=== PATIENT | male | born 1945 | race Caucasian/White ===

== ENCOUNTER 2020-02-03 11:19 | Observation (INO) ==
[2020-02-03 11:44] LABS: Basophils % 0.1 % (0.0-0.8); Hematocrit 41.4 VOL% (42.0-52.0); Hemoglobin 14.1 GM/DL (14.0-18.0); Immature Granulocytes % 0.6 %; Immature Granulocytes Absolute 0.14 #; Lymphocytes # 0.8 10*3/uL (1.4-4.0); Lymphocytes % 3.7 % (21.2-54.2); Mean Corpuscular HGB Conc 34.1 GM/DL (32-36); Mean Corpuscular Volume 83.1 FL (87-102); Mean Platelet Volume 10.7 FL (9.6-12.0); Monocytes % 3.3 % (1.7-12.7); Neutrophils % 92.3 % (38.7-73.9); Platelet Count 200 T/CUMM (130-400); Red Blood Count 4.98 MC/CUMM (3.8-5.5); Red Cell Distribution Width 13.2 % (9.3-17.3); White Blood Count 21.8 T/CUMM (4-12)
[2020-02-03] MEDS ORDERED: ONDANSETRON 4 MG/2 ML VIAL IV STA (11:47)
[2020-02-03] MEDS ORDERED: MORPHINE 4 MG/1 ML VIAL IV STA (11:47)
[2020-02-03] MEDS ORDERED: ENOXAPARIN 120 MG/0.8 ML SYRINGE SUBCUT STA (11:47)
[2020-02-03] MEDS ORDERED: ASPIRIN CHEW 81 MG TABLET PO STA (11:47)
[2020-02-03 12:06] LABS: Band Neutrophils 2 % (0-10); Hypochromasia 1+; Lymphocytes 2 % (20-55); Microcytosis 1+; Ovalocytes Slight; Platelet Estimate Adequate; Segmented Neutrophils 93 % (50-85); Total Cells Counted 100
[2020-02-03 12:11] LABS: Alanine Aminotransferase 24 U/L (16-61); Alkaline Phosphatase 98 U/L (45-117); Aspartate Amino Transferase 14 U/L (0-37); Bilirubin,Total < 0.39 MG/DL (0.2-1.0); Blood Urea Nitrogen 24 MG/DL (7-18); Calcium 9.7 MG/DL (8.5-10.1); Estimated Glom Filtration Rate 47 ML/MIN; Glucose 222 MG/DL (74-106); Total Protein 7.7 G/DL (6.4-8.3)
[2020-02-03] MEDS ORDERED: SODIUM CHLORIDE 0.9% 1,000 ML IV STA (12:25)
[2020-02-03] MEDS ORDERED: ONDANSETRON 4 MG/2 ML VIAL IV PRN (13:59)
[2020-02-03] MEDS ORDERED: ALUMINUM/MAGNES/SIMETH MAX STR 30 ML UDCUP PO PRN (13:59)
[2020-02-03] MEDS ORDERED: MAGNESIUM SULF RIDER 2 GM in PREMIX 1 EACH IV PRN (13:59)
[2020-02-03] MEDS ORDERED: POTASSIUM CHLORIDE 20 MEQ TABLET PO PRN (13:59)
[2020-02-03] MEDS ORDERED: diphenhydrAMINE CAP 25 MG CAPSULE PO PRN (13:59)
[2020-02-03] MEDS ORDERED: MAGNESIUM SULF RIDER 4 GM in PREMIX 1 EACH IV PRN (13:59)
[2020-02-03] MEDS ORDERED: ZALEPLON 5 MG CAPSULE PO PRN (13:59)
[2020-02-03] MEDS ORDERED: NITROGLYCERIN SL 0.4 MG TABLET SL PRN (14:07)
[2020-02-03] MEDS ORDERED: FLUTICASONE 50 MCG NASAL SPRAY 16 GM BOTTLE BOTH NARES PRN (14:07)
[2020-02-03] MEDS ORDERED: NEBIVOLOL 10 MG TABLET PO ONE (14:11)
[2020-02-03] MEDS ORDERED: GLUCAGON 1 MG VIAL IM PRN (14:11)
[2020-02-03] MEDS ORDERED: DEXTROSE 50% 25 GM/50 ML VIAL IV PRN (14:11)
[2020-02-03] MEDS ORDERED: CLOPIDOGREL 75 MG TABLET PO ONE (14:16)
[2020-02-03] MEDS: ISOSORBIDE MONONITRATE 30 MG TABLET PO SCH (15:36)
[2020-02-03 15:52] LABS: Bilirubin,Urine Negative (Negative); Blood, Urine Negative (Negative); Glucose,Urine (UA) 150 mg/dL (Negative); Hyaline Casts,Urine 3 /LPF (0-3); Ketones,Urine Negative (Negative); Mucus,Urine Occasional /LPF (Occasional); Nitrite,Urine Negative (Negative); Protein,Urine Negative; RBC,Urine <1 /HPF (0-4); Urine Appearance CLEAR (Clear); Urine Color Yellow (Yellow); Urine Specific Gravity 1.024 (1.001-1.035); Urine Urobilinogen < 2.0 EU/DL (0.2-1.0); WBC,Urine <1 /HPF (0-6)
[2020-02-03 17:35] LABS: CKMB % 10.1 %
[2020-02-03 17:40] LABS: Troponin I 1.6 NG/ML (0.00-0.045)
[2020-02-03] MEDS: INSULIN REGULAR 100 UNIT/ML SUBCUT SCH ×2 (17:42→21:26)
[2020-02-03] MEDS: SODIUM CHLORIDE 0.45% 1,000 ML IV SCH (17:42)
[2020-02-03] MEDS ORDERED: NEBIVOLOL 10 MG TABLET PO SCH (21:00)
[2020-02-03] MEDS: CYCLOBENZAPRINE 10 MG TABLET PO SCH (21:25)
[2020-02-03] MEDS: DOCUSATE SODIUM 100 MG CAPSULE PO SCH (21:25)
[2020-02-03] MEDS: ROSUVASTATIN 20 MG TABLET PO SCH (21:25)
[2020-02-03] MEDS: TERAZOSIN 1 MG CAPSULE PO SCH (21:26)
[2020-02-03] MEDS: PRAMIPEXOLE 0.25 MG TABLET PO SCH (21:26)
[2020-02-03 21:27] LABS: CKMB % 11.2 %
[2020-02-03 21:35] LABS: Troponin I 2.78 NG/ML (0.00-0.045)
[2020-02-04] MEDS: SODIUM CHLORIDE 0.45% 1,000 ML IV SCH ×2 (02:54→16:32)
[2020-02-04 06:00] LABS: Basophils % 0.2 % (0.0-0.8); Eosinophils % 0.1 % (0.00-10.9); Hemoglobin 13.2 GM/DL (14.0-18.0); Immature Granulocytes % 0.7 %; Immature Granulocytes Absolute 0.13 #; Lymphocytes # 2.2 10*3/uL (1.4-4.0); Lymphocytes % 11.9 % (21.2-54.2); Mean Corpuscular Volume 83.9 FL (87-102); Mean Platelet Volume 11.2 FL (9.6-12.0); Monocytes % 5.5 % (1.7-12.7); Neutrophils % 81.6 % (38.7-73.9); Platelet Count 183 T/CUMM (130-400); Red Blood Count 4.77 MC/CUMM (3.8-5.5); Red Cell Distribution Width 13.4 % (9.3-17.3); White Blood Count 18.3 T/CUMM (4-12)
[2020-02-04 06:45] LABS: Albumin 3.5 G/DL (3.4-5.0); Bilirubin,Total 0.6 MG/DL (0.2-1.0); Osmolality,Calculated 283.5 MOS/KG (273-304); Risk Ratio 2.25; Total Protein 7.1 G/DL (6.4-8.3); VLDL CHOLESTEROL 31.4 MG/DL
[2020-02-04] MEDS: INSULIN REGULAR 100 UNIT/ML SUBCUT SCH ×4 (09:03→20:45)
[2020-02-04] MEDS: MULTIVITAMIN (CENTRUM) TABLET PO SCH (09:11)
[2020-02-04] MEDS: amLODIPine 2.5 MG TABLET PO SCH (09:11)
[2020-02-04] MEDS: CYCLOBENZAPRINE 10 MG TABLET PO SCH ×2 (09:11→20:43)
[2020-02-04] MEDS: ASPIRIN EC 81 MG TABLET PO SCH (09:11)
[2020-02-04] MEDS: ZINC SULFATE 220 MG CAPSULE PO SCH (09:11)
[2020-02-04] MEDS: allopurinoL 300 MG TABLET PO SCH (09:11)
[2020-02-04] MEDS: ISOSORBIDE MONONITRATE 30 MG TABLET PO SCH (09:12)
[2020-02-04] MEDS: COENZYME Q10 100 MG CAPSULE PO SCH (09:13)
[2020-02-04] MEDS: PANTOPRAZOLE 40 MG TABLET PO SCH (09:14)
[2020-02-04] MEDS: NEBIVOLOL 10 MG TABLET PO SCH (09:14)
[2020-02-04] MEDS: LORATADINE 10 MG TABLET PO SCH (09:14)
[2020-02-04] MEDS: CLOPIDOGREL 75 MG TABLET PO SCH (09:15)
[2020-02-04] MEDS: KRILL OM DHA EPA PHOSPHO AST PO SCH (09:15)
[2020-02-04] MEDS: OLMESARTAN 20 MG TABLET PO SCH (09:15)
[2020-02-04] MEDS ORDERED: DIAZEPAM 5 MG TABLET PO ONE (09:30)
[2020-02-04] MEDS ORDERED: diphenhydrAMINE CAP 25 MG CAPSULE PO ONE (09:30)
[2020-02-04] MEDS ORDERED: VERAPAMIL 5 MG/2 ML VIAL ONE (12:52)
[2020-02-04] MEDS ORDERED: LIDOCAINE 1% 20 ML VIAL ONE (12:52)
[2020-02-04] MEDS ORDERED: NITROGLYCERIN DRIP 50 MG/250 ML BOTTLE IV ONE (12:52)
[2020-02-04] MEDS ORDERED: MIDAZOLAM 2 MG/2 ML VIAL ONE (13:18)
[2020-02-04] MEDS ORDERED: HYDROmorphone 2 MG/1 ML VIAL ONE (13:18)
[2020-02-04] MEDS ORDERED: ENOXAPARIN 60 MG/0.6 ML SYRINGE ONE (13:37)
[2020-02-04] MEDS ORDERED: ENOXAPARIN 30 MG/0.3 ML SYRINGE ONE ×2 (13:37→14:05)
[2020-02-04] MEDS ORDERED: CLOPIDOGREL 300 MG TABLET ONE (14:03)
[2020-02-04] MEDS ORDERED: TIROFIBAN 5,000 MCG/100 ML PREMIX IV ONE (14:05)
[2020-02-04] MEDS ORDERED: GLUCAGON 1 MG VIAL IM PRN (15:08)
[2020-02-04] MEDS ORDERED: DEXTROSE 50% 25 GM/50 ML VIAL IV PRN (15:08)
[2020-02-04 15:38] LABS: CKMB % 10.7 %
[2020-02-04 15:41] LABS: Troponin I 3.25 NG/ML (0.00-0.045)
[2020-02-04] MEDS: TERAZOSIN 1 MG CAPSULE PO SCH (20:42)
[2020-02-04] MEDS: PRAMIPEXOLE 0.25 MG TABLET PO SCH (20:42)
[2020-02-04] MEDS: DOCUSATE SODIUM 100 MG CAPSULE PO SCH (20:43)
[2020-02-04] MEDS: ROSUVASTATIN 20 MG TABLET PO SCH (20:43)
[2020-02-05] MEDS: SODIUM CHLORIDE 0.45% 1,000 ML IV SCH (05:09)
[2020-02-05 05:23] LABS: Basophils # 0.1 10*3/uL (0.0-0.2); Basophils % 0.5 % (0.0-0.8); Eosinophils # 0.2 10*3/uL (0.0-0.87); Eosinophils % 2.3 % (0.00-10.9); Hematocrit 37.4 VOL% (42.0-52.0); Hemoglobin 12.2 GM/DL (14.0-18.0); Immature Granulocytes % 0.8 %; Immature Granulocytes Absolute 0.08 #; Lymphocytes # 2.4 10*3/uL (1.4-4.0); Lymphocytes % 22.9 % (21.2-54.2); Mean Corpuscular HGB Conc 32.6 GM/DL (32-36); Monocytes % 8.8 % (1.7-12.7); Neutrophils % 64.7 % (38.7-73.9); Platelet Count 151 T/CUMM (130-400); Red Cell Distribution Width 13.4 % (9.3-17.3); White Blood Count 10.3 T/CUMM (4-12)
[2020-02-05 05:46] LABS: Calcium 8.6 MG/DL (8.5-10.1); Osmolality,Calculated 280.7 MOS/KG (273-304)
[2020-02-05 05:47] LABS: CKMB % 8.1 %
[2020-02-05 05:53] LABS: Troponin I 2.14 NG/ML (0.00-0.045)
[2020-02-05] MEDS: INSULIN REGULAR 100 UNIT/ML SUBCUT SCH ×2 (09:27→14:18)
[2020-02-05] MEDS: ASPIRIN EC 81 MG TABLET PO SCH (09:27)
[2020-02-05] MEDS: NEBIVOLOL 10 MG TABLET PO SCH (09:27)
[2020-02-05] MEDS: OLMESARTAN 20 MG TABLET PO SCH (09:27)
[2020-02-05] MEDS: LORATADINE 10 MG TABLET PO SCH (09:28)
[2020-02-05] MEDS: ISOSORBIDE MONONITRATE 30 MG TABLET PO SCH (09:28)
[2020-02-05] MEDS: CYCLOBENZAPRINE 10 MG TABLET PO SCH (09:28)
[2020-02-05] MEDS: MULTIVITAMIN (CENTRUM) TABLET PO SCH (09:28)
[2020-02-05] MEDS: COENZYME Q10 100 MG CAPSULE PO SCH (09:28)
[2020-02-05] MEDS: ZINC SULFATE 220 MG CAPSULE PO SCH (09:29)
[2020-02-05] MEDS: PANTOPRAZOLE 40 MG TABLET PO SCH (09:29)
[2020-02-05] MEDS: CLOPIDOGREL 75 MG TABLET PO SCH (09:29)
[2020-02-05] MEDS: amLODIPine 2.5 MG TABLET PO SCH (09:32)
[2020-02-05] MEDS: allopurinoL 300 MG TABLET PO SCH (09:32)
[2020-02-05] MEDS: KRILL OM DHA EPA PHOSPHO AST PO SCH (09:36)
[2020-02-05 12:14] VITALS: BP 133/80
[2020-02-05] MEDS ORDERED: INFLUENZA VIRUS VACCINE 0.5 ML SYRINGE IM ONE (14:52)
[2020-02-05] MEDS ORDERED: cilostazoL 50 MG TABLET PO SCH (21:00)
== END 2020-02-05 15:19 | disposition home or self-care (01) ==
LOC: N.TELEN 11:19 → N.ED 11:19 → N.TELEN 16:59
PROVIDERS: ADMIT Internal Medicine Cardiovascular Disease; ATTEND Internal Medicine Cardiovascular Disease
PROC: CLCCHCL (ICD-10-PCS; 2020-02-04 12:45)